=== PATIENT | female | born 1985 | race African-American/Black ===

== ENCOUNTER 2017-10-03 13:46 | Emergency (ER) | payer OTHER ==
[~2017-10-03] VITALS: Ht 152.4 cm; Wt 92.0 kg
[2017-10-03] MEDS ORDERED: SODIUM CHLORIDE 0.9% 1,000 ML IV ONE (16:52)
[2017-10-03] MEDS ORDERED: ONDANSETRON HCL 4MG/2ML VIAL IV STA (16:52)
[2017-10-03 17:23] LABS: HEMOGLOBIN. 15.8 g/dL (12.0-16.0); MEAN CORPUSCULAR HEMOGLOBIN 29.4 pg (28.0-32.0); MEAN CORPUSCULAR VOLUME 87.5 fL (81.0-99.0); MEAN PLATELET VOLUME 8.7 fl (7.4-10.4); PLATELET 280 x1000/uL (130-400); RED BLOOD CELL COUNT 5.38 mill/uL (4.2-5.4); RED CELL DISTRIBUTION WIDTH 14.1 % (11.6-14.6)
[2017-10-03 17:27] LABS: PROTHROMBIN TIME 10.7 sec (9.4-11.6)
[2017-10-03 17:28] LABS: CHLORIDE 104 mEq/L (98-107)
[2017-10-03 17:31] LABS: CLARITY URINE CLOUDY (CLEAR); COLOR URINE YELLOW (YELLOW); KETONES URINE 4+ (NEGATIVE); LEUKOCYTE ESTERASE URINE TRACE (NEGATIVE); NITRITE URINE NEGATIVE (NEGATIVE); OCCULT BLOOD URINE 1+ (NEGATIVE); PROTEIN URINE TRACE (NEGATIVE); SPECIFIC GRAVITY URINE 1.031 (1.005-1.030); UROBILINOGEN URINE 0.2 E.U./dL (0.2-1.0)
[2017-10-03 17:35] LABS: CARBON DIOXIDE 24 mEq/L (21-32)
[2017-10-03 17:43] LABS: PLATELET ESTIMATE NORMAL
[2017-10-03] MEDS ORDERED: KETOROLAC 30MG/ML VIAL IV ONE (18:30)
[2017-10-03 18:54] VITALS: BP 120/70
== END 2017-10-03 19:15 | disposition home or self-care (01) ==
LOC: ER 14:08
DX: N39.0 Urinary tract infection, site not specified (principal); R10.30 Lower abdominal pain, unspecified
CPT/HCPCS: 36415; 80053; 81001; 85025; 85610; 96361; 96374; 96375; 99284; J1885; J2405; J7030; Z7610